=== PATIENT | male | born 1995 | race Caucasian/White ===

== ENCOUNTER → 2016-06-23 | Outpatient (CLI) | payer OTHER, BC ==
--- NOTE | 2016-06-24 14:00 | MR ---
EXAM DATE: 06/23/16 PATIENT'S AGE: 21 Patient: KAREN RODRIGUEZ Facility: [place], [place] Site . Site : 1995 Study: MRI Knee Right [id number]/10/2017 3:41:02 PM Ordering Physician: Darion Smith Final Report: HISTORY: Knee pain. Technique: MRI right knee without contrast. Comparison: None. Findings: Medial compartment: Medial meniscus: Intact. Articular cartilage: No focal cartilage defects. Lateral compartment: Lateral meniscus: Intact. Articular cartilage: No focal cartilage defects. Patellofemoral compartment: No focal cartilage defects. Ligaments: ACL: Intact. PCL: Intact. MCL: Intact. Lateral ligamentous complex: Intact. Extensor mechanism: Distal quadriceps and patellar tendons are intact. Patchy intermediate signal in the medial patellofemoral ligament and medial patellar retinaculum at the patellar attachments where there are a few small corticated ossicles. Mild marrow edema in the adjacent medial aspect of the patella. Remainder of the MPFL and medial patellar retinaculum are intact. Lateral patellar restraints are intact. No lateral patellar subluxation. Patella sapphire. Tibial tuberosity-trochlear groove distance is approximately 12 mm. Lateral trochlear inclination is 23 degrees. Trochlear depth is approximately 3 mm. Joint space: No joint effusion. No joint bodies. Bones and soft tissues: Subchondral fracture in the proximal lateral tibia a at the proximal tibiofibular joint with surrounding marrow edema. Less than 2 mm depression of the fracture fragment along its medial margin. No other fracture. Proximal fibula is intact. No marrow replacing process. Small popliteal cyst. Impression : 1. Subchondral fracture in the lateral proximal tibia at the proximal tibiofibular joint. Proximal fibula is intact. 2. Findings of remote injury of the medial patellofemoral ligament and medial patellar retinaculum at the patellar attachment. Edema within the patella at the MPFL/medial patellar retinaculum attachment may be acute on chronic sprain. No high-grade MPFL/medial retinaculum tear or other findings to suggest transient lateral patellar dislocation. 3. No meniscus or cruciate ligament tear. Dictated by Ravi Escamilla MD @ Jun 24 2016 9:08AM (Electronic Signature) Report Signed by Proxy and Original Signed Document filed in the Medical Record. [facility]
== END ==
LOC: MW.MRI 14:08
PROVIDERS: ATTEND Orthopaedic Surgery
DX: M25.561 Pain in right knee (principal); M25.562 Pain in left knee; S82.291A Other fracture of shaft of right tibia, initial encounter for closed fracture; X58.XXXA Exposure to other specified factors, initial encounter
CPT/HCPCS: 73721-26-RT; 73721-RT